=== PATIENT | male | born 1965 | race Caucasian/White ===

== ENCOUNTER 2024-08-22 09:30 | Outpatient (RCR) | payer MEDICAID, SELFPAY ==
--- NOTE | 2024-08-19 11:21 | PT.OIERPT ---
PT OP Initial Eval Patient Information Outpatient Physical Therapy Treatment Date: 08/19/24 Visit Reasons: Right shoulder pain Medical Diagnosis: Right Shoulder Pain Treatment Dx #1: Right Shoulder Pain Start of Care: 08/19/24 Date of Onset: 5 months ago Smoking Status Smoking Status: Never smoker Initial Assessment Subjective: Pt is a 59 y/o male reports of chronic right shoulder pain since he hurt his shoulder ~ 5 months ago while playing basketball. During the inital injury Pt heard a pop. Pt's xray negative no MRI has been done. Pt has limitation with overhead motions, lifting, chores self care, cooking, cleaning, and performing recreational activities. Objective: Right Shoulder PROM: all motions are WFL Right Shoulder AROM Flexion: 120 deg Abduction: 95 deg External Rotation: 70 deg Internal Rotation: 50 deg Right Shoulder MMTs: grossly 3-/5 Right Scapula MMTs: grossly 3-/5 Palpation: TTP supraspinatus tendon Special Test (+) delmy-cricket Assessment: Pt demonstrate right shoulder pain with mobility deficit leading to difficulty with ADLs. Pt will attempt physical therapy if pain persist Pt will be refer back to provider for further consultation. 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
--- NOTE | 2024-08-22 10:29 | PT.ODAYNRPT ---
PT Outpatient Daily Note OP Daily Note Outpatient Physical Therapy Treatment Date: 08/22/24 Visit Reasons: Right shoulder pain Subjective: Pt's shoulder about the same. No change in pain and continues to feel tight. Objective: Please see flow chart for list of ther ex performed Assessment: tolerate exercises performed with minimal pain Plan: Continue with PT Length of Time (minutes) of Treatment: 30 Minutes Procedure Charges Therapeutic Exercise 30 minutes: Yes
== END 2024-08-23 23:59 | disposition home or self-care (01) ==
LOC: CPTX 09:30
PROVIDERS: PCP Physician Assistant; Referring Provider Physician Assistant; Visit Provider Physician Assistant
DX: M25.511 Pain in right shoulder (principal); G89.29 Other chronic pain; S49.91XD Unspecified injury of right shoulder and upper arm, subsequent encounter; X58.XXXD Exposure to other specified factors, subsequent encounter
CPT/HCPCS: 97110; 97162

== ENCOUNTER → 2024-08-27 | Outpatient (CLI) | payer MEDICAID, SELFPAY ==
--- NOTE | 2024-08-27 10:00 | XR_ITS ---
MRI shoulder, right without contrast. Date and time: Every 2024 1048 hours INDICATIONS: Injury to the shoulder 04/07/2024 with onset shoulder pain weakness joint clicking Technique: Multiple axial, sagittal and coronal sections of the shoulder have been obtained. Siemens high-resolution 1.5 Angelica MRI scanner is utilized. Axial fat-suppressed sections, TR 2350, TE 18 T2-weighted coronal fat-saturated images, TR 3500, TE 7100 T1-weighted coronal images, TR 500, TE 15 T2-weighted sagittal fat-saturated images, TR 3500, TE 57 T1-weighted sagittal sections, TR 504, TE 13. Findings: Large, 4 cm full-thickness rotator cuff tear Subscapularis insertion is intact. Subscapularis bursa is not seen. Long head of the biceps is in the bicipital groove. No definite tear of the biceps superior labral anchor is seen. Retraction of the musculotendinous junction of the rotator cuff is evident. Tendinosis pattern is moderate. Distance between the acromium and humeral head is 2 mm Atrophy of the supraspinatus muscle is moderate. Atrophy of the infraspinatus muscle is moderate. Sagittal sections demonstrate a horizontal acromion. Acromioclavicular joint demonstrates mild osteoarthritis . Osacromiale is not identified. Labral margins appear intact. Bony glenoid fossa on the sagittal sections does not demonstrate osseous defect. Occult fracture or area of avascular necrosis is not seen. Acromioclavicular joint separation is not visible. Defect in the posterolateral margin of the humeral head is not seen Impression: Large full-thickness rotator cuff tear
== END | disposition home or self-care (01) ==
PROVIDERS: PCP Family Medicine; Referring Provider Family Medicine; Visit Provider Family Medicine
DX: S46.011A Strain of muscle(s) and tendon(s) of the rotator cuff of right shoulder, initial encounter (principal); X58.XXXA Exposure to other specified factors, initial encounter
CPT/HCPCS: 73221

== ENCOUNTER 2024-08-29 09:30 | Outpatient (RCR) | payer MEDICAID, SELFPAY ==
--- NOTE | 2024-08-27 15:06 | PT.ODAYNRPT ---
PT Outpatient Daily Note OP Daily Note Outpatient Physical Therapy Treatment Date: 08/27/24 Visit Reasons: Pain in RT shoulder Subjective: Pt's shoulder feels okay but continues to have pain. Objective: Please see flow chart for list of ther ex performed Assessment: frequent cues to pace throughout PT session. Minimal changed with pain post PT session Plan: Continue with PT Length of Time (minutes) of Treatment: 30 Minutes Procedure Charges Therapeutic Exercise 30 minutes: Yes
--- NOTE | 2024-08-29 10:20 | PT.ODS1RPT ---
PT OP Progress/Discharge Note Date of Service: 08/29/24 Progress Note/DC Note Progress Note/Discharge Note: DC Note Patient Information Visit Reasons: Pain in RT shoulder Medical Diagnosis: Right Shoulder Pain Treatment Dx #1: Right Shoulder Weakness Service Discharge Date: 08/29/24 Status Subjective: Pt's shoulder continues to hurt. Pt's MRI done 08/27/24. Due to pain Pt has limitation with all ADLs. Pt has not seen provider since completed MRI. Objective: Right Shoulder PROM: all motions are WFL Right Shoulder AROM Flexion: 120 deg Abduction: 95 deg External Rotation: 70 deg Internal Rotation: 50 deg Right Shoulder MMTs: grossly 3-/5 Right Scapula MMTs: grossly 3-/5 Palpation: TTP supraspinatus tendon Assessment: Pt exhibit right anterolateral shoulder pain consistent with MRI finding of large rotator cuff tear leading to difficulty with ADLs. Pt will no longer benefit from physical therapy due to minimal progress towards goals. Pt instructed to follow up with PCP for ortho consultation. Pt gave verbal understanding. Pt did not meet set goals in therapy; thank you for your referrals. Plan: D/C home and follow up with provider Recommend ortho consultation Procedure Charges Therapeutic Exercise 15 minutes: Yes
== END 2024-09-20 23:59 | disposition home or self-care (01) ==
LOC: CPTX 09:30
PROVIDERS: PCP Physician Assistant; Referring Provider Physician Assistant; Visit Provider Physician Assistant
DX: M25.511 Pain in right shoulder (principal); R53.1 Weakness; G89.29 Other chronic pain; S49.91XD Unspecified injury of right shoulder and upper arm, subsequent encounter; X58.XXXD Exposure to other specified factors, subsequent encounter
CPT/HCPCS: 97110

== ENCOUNTER 2025-07-09 09:37 | Outpatient (RCR) | payer MEDICAID, SELFPAY ==
--- NOTE | 2025-07-09 10:19 | PTNOTE_ITS ---
PT OP Initial Eval Patient Information Outpatient Physical Therapy Treatment Date: 07/09/25 Visit Reasons: RT shoulder rotator cuff SURGERY Medical Diagnosis: [id number] Treatment Dx #1: Right Shoulder Pain Treatment Dx #2: Right Shoulder Mobility Deficits Start of Care: 07/09/25 Date of Onset: 1 year ago Smoking Status Smoking Status: Never smoker Initial Assessment Subjective: Pt is a 60 y/o male reports of chronic right shoulder pain worsening ~ 1 year ago. Pt's past MRI showed large full thickness rotator cuff tear. Pt had a repeat MRI done recently but does not know the result. Pt has seen Dr Snyder and surgery is recommended. According to patient he is pending surgery soon. Pt has limitation with overhead motions, lifting, chores, self care, and performing recreational activities. Pt has attempt physical therapy without success Aug 2024. Objective: Right Shoulder PROM: all motions are WFL with end range pain in all plane Right Shoulder AROM Flexion: 90 deg Abduction: 95 deg External Rotation: 85 deg Internal Rotation: 60 deg Right Shoulder MMTs: grossly 3-/5 Right Scapula MMTs: grossly 3-/5 Palpation: TTP supraspinatus tendon Assessment: Pt demonstrate right shoulder pain with mobility deficits consistent with MRI findings of rotator cuff tear leading to difficulty with ADLs. Pt will not benefit from physical therapy at this time due to known large rotator cuff tear. Pt is in consultation with ortho and surgery was recommended. At this tme Pt will be evaluated and d/c from care. Please send patient back to physical therapy post surgical intervention; thank you for your referrals. Short Term and Assisted Goals 1) Eval and D/C 2) Pending surgery Treatment Plan Frequency and Duration: 1x Certification Dates: 07/09/25 to 10/07/25 Procedure Charges OP PT Eval Mod Complex 30 minutes: Yes
== END 2025-07-23 23:59 | disposition home or self-care (01) ==
LOC: CPTX 09:37
PROVIDERS: PCP Physician Assistant; Referring Provider Physician Assistant; Visit Provider Physician Assistant
DX: M25.511 Pain in right shoulder (principal); G89.29 Other chronic pain; S46.011D Strain of muscle(s) and tendon(s) of the rotator cuff of right shoulder, subsequent encounter; X58.XXXD Exposure to other specified factors, subsequent encounter
CPT/HCPCS: 97162